=== PATIENT | female | born 1995 | race Caucasian/White ===

== ENCOUNTER 2017-02-04 17:50 | Emergency (ER) | payer MEDICAID ==
[2017-02-04 18:50] VITALS: BP 118/70
--- NOTE | 2017-02-09 19:19 | ED Elopement Review ---
ED Pt Elopement review - Call Back decision Pt Call Back Decision: Pt to F/U with PMD
== END 2017-02-05 01:30 | disposition left against medical advice (07) ==
LOC: ED 17:50
DX: O26.891 Other specified pregnancy related conditions, first trimester (principal); R11.0 Nausea; R50.9 Fever, unspecified; Z53.21 Procedure and treatment not carried out due to patient leaving prior to being seen by health care provider